=== PATIENT | female | born 1935 | race Caucasian/White ===

== ENCOUNTER 2022-01-12 19:29 | Inpatient (IN) | payer SELFPAY ==
[~2022-01-12] VITALS: Ht 152.4 cm; Wt 58.5 kg
--- NOTE | 2022-01-12 19:40 | NUR ---
TACOS7 FROM HOME FOUND ON FLOOR. ON O2 SATTING 82% ON 3L SATTING 95% MORE ALTERED THAN USUAL. ROUND BONER NEVER SHOWED UP PER EMS UNABLE TO OBTAIN ANY INFO. [id number]. PT AWAKE; NONVERBAL. NOW SATTING 96% ON 5L N/C. CONNECTED PT TO POX AND MONITOR. SAFETY MEASURES IN PLACE.
[2022-01-12] MEDS ORDERED: ACETAMINOPHEN 650 MG/SUPP.RECT RC ONE ×2 (20:00)
--- NOTE | 2022-01-12 20:01 | NUR ---
IV ESTABLISHED: RFA #18G S/L & LFA #20G S/L
--- NOTE | 2022-01-12 20:02 | NUR ---
FC 16FR INSERTED AND URINE COLLECTED AND SENT TO LAB
--- NOTE | 2022-01-12 20:03 | NUR ---
DR GAMA BARR AT PT'S BEDSIDE
--- NOTE | 2022-01-12 20:04 | NUR ---
COVID ANTIGEN SWAB COLLECTED AND SENT TO LAB
[2022-01-12 20:18] LABS: HEMATOCRIT 30 % (33-45); LYMPHOCYTES # (AUTO) 0.5 K/uL (0.8-4.8); LYMPHOCYTES % (AUTO) 4.3 % (20.0-44.0); MEAN CORPUSCULAR HGB CONC 33 g/dl (31.0-36.0); MEAN CORPUSCULAR VOLUME 88 fL (82-100); MONOCYTES # (AUTO) 0.5 K/uL (0.1-1.30); MONOCYTES % (AUTO) 4.4 % (2.0-12.0); NEUTROPHILS % (AUTO) 91.3 % (43.0-81.0); PLATELET COUNT (AUTO) 209 K/uL (150-450); RED BLOOD CELL COUNT(AUTO) 3.44 MIL/uL (4.0-5.2)
--- NOTE | 2022-01-12 20:19 | NUR ---
PT TAKEN TO CT VIA MEGAN
[2022-01-12 20:28] LABS: BILIRUBIN,URINE NEGATIVE (NEGATIVE); COLOR,URINE YELLOW (YELLOW); LEUKOCYTE ESTERASE ,URINE LARGE (NEGATIVE); NITRITE, URINE NEGATIVE (NEGATIVE); PROTEIN,URINE NEGATIVE (NEGATIVE); UGLUCOSE NEGATIVE (NEGATIVE)
[2022-01-12 20:57] LABS: CARBON DIOXIDE 31 mmol/L (21-32); CHLORIDE 92 mmol/L (98-107); CREATININE 3.6 mg/dL (0.6-1.3); GLUCOSE 206 mg/dL (74-106); POTASSIUM 3.7 mmol/L (3.5-5.1); SODIUM SERUM 133 mmol/L (136-145)
[2022-01-12] MEDS ORDERED: PIPERACILLIN /TAZOBACTAM 3.375 G in IV D5W 50 ML IV ONE (21:00)
[2022-01-12] MEDS ORDERED: IV NS 0.9% 1,000 ML BAG IV ONE (21:00)
--- NOTE | 2022-01-12 21:00 | NUR ---
BUN 123
[2022-01-12] MEDS ORDERED: PIPERACILLIN /TAZOBACTAM 3.375 G VIAL IV ONE (21:02)
[2022-01-12 21:10] LABS: ALANINE AMINOTRANSFERASE 12 U/L (12-78); ALBUMIN 2.8 g/dL (3.4-5.0); ALKALINE PHOSPHATASE 59 U/L (46-116); ASPARTATE AMINOTRANSFERASE 23 U/L (15-37); BILIRUBIN,DIRECT 0.4 mg/dL (0.0-0.2); BILIRUBIN,TOTAL 0.8 mg/dL (0.2-1.0); TOTAL PROTEIN, SERUM 7.2 g/dL (6.4-8.2)
[2022-01-12 21:13] LABS: UREA NITROGEN, BLOOD 123 mg/dL (7-18)
[2022-01-12 21:43] LABS: BACTERIA,URINE 4+ /HPF (None Seen); RBC,URINE 51-80 /HPF (0-2); WBC,URINE 51-80 /HPF (0-3)
[2022-01-12] MEDS ORDERED: DEXTROSE 50%-WATER 50 ML DISP.SYRIN IV PRN (22:00)
[2022-01-12] MEDS ORDERED: ACETAMINOPHEN 650 MG/SUPP.RECT RC PRN (22:00)
[2022-01-12] MEDS ORDERED: ONDANSETRON HCL/PF 4 MG/2 ML VIAL IVP PRN (22:00)
[2022-01-12] MEDS ORDERED: Z GUARD REMEDY 4 OZ OINT TP PRN (22:00)
[2022-01-12] MEDS: IV NS 0.9% 1,000 ML IV PRN (22:21)
[2022-01-12 22:33] LABS: SERUM AMMONIA 21 umol/L (11-32)
--- NOTE | 2022-01-12 23:17 | NUR ---
PT AWAKE; NOW A/OX2, ABLE TO VERBALIZE SIMPLE SENTENCES.
[2022-01-12 23:19] LABS: THYROID STIMULATING HORMONE 0.432 uIU/mL (0.358-3.74)
--- NOTE | 2022-01-12 23:19 | NUR ---
LEFT VOICEMESSAGE TO SON [phone] REGARDING CONDITION. NOT ABLE TO OBTAIN PT'S HX
--- NOTE | 2022-01-13 00:34 | NUR ---
SACRAL REDNESS NOTED. TURNED AND REPOSITIONED PATIENT. KEPT CLEAN AND DRY.
--- NOTE | 2022-01-13 01:00 | NUR ---
ASSIGNED TO 104
--- NOTE | 2022-01-13 01:03 | NUR ---
REPORT GIVEN TO SAEID CARBALLO RN FOR OMAR
[2022-01-13] MEDS: BLOOD SUGAR DIAGNOSTIC 1 EACH STRIP IN SCH ×5 (01:31→23:30)
--- NOTE | 2022-01-13 01:32 | NUR ---
POC BS ACCUCHECK 162
--- NOTE | 2022-01-13 01:51 | NUR ---
PT TRANSFERRED TO [facility] 104 VIA ACLS PROTOCOL. ALL BELONGINGS WITH PT. VSS.
[2022-01-13 02:00] VITALS: BP 124/52
--- NOTE | 2022-01-13 02:00 | NUR ---
TELE/TD/RN ADMITTING NOTE RECEIVED REPORT FROM DATER ASSEMBLER HILLARY. PATIENT ARRIVED TO UNIT VIA GURNEY AND 2 STAFF MEMBERS. PATIENT IS BEING ADMITTED WITH DX OF SEPSIS. ATTEMPTED TO OBTAIN PAST MEDICAL HISTORY BUT PATIENT IS CONFUSED AT THIS TIME. PATIENT IS ALERT AND ORIENTED X [address] CONTINUES ON O2 5L VIA NC WITH NO S/SX OF RESPIRATORY DISTRESS NOTED. IV ACCESS TO LEFT FOREARM #20G AND RIGHT FOREARM #18G BOTH INTACT AND PATENT. SKIN CHECK PERFORMED WITH SCABS NOTED TO LEFT KNEE AND LEFT ANKLE. LEFT KNEE ALSO HAS REDNESS. ORDERED WOUND CONSULT. MAS CATHETER IN PLACE DRAINING CLEAR, YELLOW URINE TO GRAVITY. PATIENT STATES SHE IS VACCINATED AGAINST COVID-19 BUT UNABLE TO SAY WHEN OR WHICH VACCINE. PATIENT IS NPO AT THIS TIME AND WILL HAVE SWALLOW EVAL IN AM. PATIENT STATES HER SON'S NAME IS PHILIP. ER HAD LEFT MESSAGE FOR SON WITH NO RESPONSE. WILL ATTEMPT TO CALL THIS MORNING TO OBTAIN PATIENTS MEDICAL INFO. ALL BELONGINGS REVIEWED WITH PATIENT AND BELONGINGS LIST SIGNED AND PLACED IN CHART. PATIENT ORIENTED TO ROOM, CALL LIGHT AND UNIT. CALL LIGHT WITHIN REACH. ASPIRATION, FALL AND SAFETY PRECAUTIONS MAINTAINED. ALL NEEDS ATTENDED TO AT THIS TIME.
[2022-01-13] MEDS: IV NS 0.9% 1,000 ML IV PRN ×2 (02:29→16:33)
[2022-01-13] MEDS ORDERED: PIPERACILLIN /TAZOBACTAM 3.375 G VIAL IV ONE (02:32)
[2022-01-13] MEDS ORDERED: ZOSYN IVPB 3.375 G in IV D5W 50ml IV SCH (03:00)
[2022-01-13 06:00] VITALS: BP 126/58
[2022-01-13] MEDS: INSULIN REGULAR, HUMAN 100 UNIT/ML 3 ML VIAL SQ PRN ×3 (06:00→23:29)
--- NOTE | 2022-01-13 06:40 | NUR ---
TD/RN CLOSING NOTE PATIENT CURRENTLY SLEEPING IN BED. ALERT AND ORIENTED X 3. ABLE TO MAKE NEEDS KNOWN. DENIES PAIN AT THIS TIME. CONTINUES ON 8O2 5L VIA NC WITH NO S/SX OF RESPIRATORY DISTRESS NOTED. IV ACCESS TO RIGHT FA #1G AND LEFT FA #20G BOTH INTACT AND PATENT. CONTINUES ON IVF NS @ 75ML/HR. CONTINUES ON IV ABX. CONTINUES ON NPO STATUS TILL SPEECH SWALLOW EVAL THIS AM. BLOOD SUGAR AT 0600 WAS 141. ADMINISTERED 2UNITS ISS PER MD ORDER. HAVE NOT RECEIVED CALL BACK FROM SON TO UPDATE MEDICAL HX. CALL LIGHT WITHIN REACH. ASPIRATION, FALL AND SAFETY PRECAUTIONS MAINTAINED. WILL ENDORSE PLAN OF CARE TO ONCOMING SHIFT RN.
[2022-01-13 07:06] LABS: BASOPHILS % (AUTO) 0.1 % (0.0-2.0); HEMATOCRIT 28 % (33-45); HEMOGLOBIN 9.1 g/dL (11.5-14.8); LYMPHOCYTES # (AUTO) 0.9 K/uL (0.8-4.8); LYMPHOCYTES % (AUTO) 6.6 % (20.0-44.0); MEAN CORPUSCULAR HGB CONC 33 g/dl (31.0-36.0); MEAN CORPUSCULAR VOLUME 89 fL (82-100); MONOCYTES # (AUTO) 0.6 K/uL (0.1-1.30); MONOCYTES % (AUTO) 4.3 % (2.0-12.0); NEUTROPHILS # (AUTO) 11.5 K/uL (1.8-8.9); PLATELET COUNT (AUTO) 185 K/uL (150-450); RED BLOOD CELL COUNT(AUTO) 3.14 MIL/uL (4.0-5.2); WHITE BLOOD COUNT (AUTO) 12.9 K/uL (4.3-11.0)
[2022-01-13 07:21] LABS: CALCIUM, SERUM 8.9 mg/dL (8.5-10.1); CARBON DIOXIDE 31 mmol/L (21-32); CHLORIDE 97 mmol/L (98-107); CREATININE 3.3 mg/dL (0.6-1.3); GLUCOSE 153 mg/dL (74-106); MAGNESIUM 2.8 mg/dL (1.8-2.4); PHOSPHORUS 5.2 mg/dL (2.5-4.9); POTASSIUM 3.5 mmol/L (3.5-5.1); SODIUM SERUM 137 mmol/L (136-145)
[2022-01-13 07:23] LABS: CHOLESTEROL 132 mg/dL (<200); HDL CHOLESTEROL 39 mg/dL (40-60); LDL 81 mg/dL (0-99); TRIGLYCERIDES 84 mg/dL (30-150)
[2022-01-13 07:24] LABS: UREA NITROGEN, BLOOD 116 mg/dL (7-18)
--- NOTE | 2022-01-13 07:34 | NUR ---
TELESALES ADVISOR OPENING NOTE PATIENT RECEIVED SLEEPING IN BED. EASILY AROUSABLE. ALERT AND ORIENTED X 2-3. ABLE TO MAKE NEEDS KNOWN. DENIES PAIN AT THIS TIME. CONTINUES ON O2 AT 5 LITERS VIA NC WITH NO S/SX OF RESPIRATORY DISTRESS. IV ACCESS TO RIGHT FA #18G AND LEFT FA #20G BOTH INTACT AND PATENT. CONTINUES ON IVF NS @ 75ML/HR. CONTINUES ON NPO STATUS TILL SPEECH SWALLOW EVAL THIS AM. CALL LIGHT WITHIN REACH. ASPIRATION, FALL AND SAFETY PRECAUTIONS IN PLACE. WILL CONTINUE PLAN OF CARE.
[2022-01-13 09:00] VITALS: BP 137/63
[2022-01-13] MEDS: PIPERACILLIN /TAZOBACTAM 2.25 G in IV D5W 50 ML IV SCH ×2 (10:05→17:13)
[2022-01-13 10:16] LABS: FERRITIN 156 ng/mL (8-388)
[2022-01-13 10:32] LABS: IRON, SERUM 14 ug/dl (50-175); TOTAL IRON BINDING CAPACITY 193 ug/dl (250-450)
[2022-01-13 13:00] VITALS: BP 132/59
[2022-01-13] MEDS ORDERED: MAGNESIUM HYDROXIDE 30 ML UDC PO PRN ×2 (14:00→20:00)
--- NOTE | 2022-01-13 14:52 | NUR ---
PT CONFUSED. PULLED RT FA #18G IV LINE OUT. REORIENTED PT AND PROVIDED COMFORT.
[2022-01-13] MEDS ORDERED: POLYETHYLENE GLYCOL 3350 17 GM POWD.PACK PO PRN (16:30)
[2022-01-13] MEDS: DOCUSATE SODIUM 100 MG CAPSULE PO SCH (16:45)
[2022-01-13 17:00] VITALS: BP 122/60
--- NOTE | 2022-01-13 19:02 | NUR ---
MUSIC THERAPY TEACHER CLOSING NOTE PATIENT AWAKE IN BED. ALERT AND ORIENTED X 2. ABLE TO MAKE NEEDS KNOWN. DENIES PAIN AT THIS TIME. CONTINUES ON O2 AT 5 LITERS VIA NC WITH NO S/SX OF RESPIRATORY DISTRESS. IV ACCESS TO LEFT FA #20G INTACT AND PATENT. IV ACCESS ON RT FA REMOVED BY PT. CONTINUES ON IVF NS @ 75ML/HR. CONTINUES ON NPO STATUS TILL SPEECH SWALLOW EVAL. CALL LIGHT WITHIN REACH. ASPIRATION, FALL AND SAFETY PRECAUTIONS IN PLACE. WILL ENDORSE TO NEXT NURSE ON DUTY FOR CONTINUITY OF CARE.
[2022-01-13 20:00] VITALS: BP 146/58
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
--- NOTE | 2022-01-13 23:33 | NUR ---
Yovani rn notes Blood sugar at 12mn is 115mg/dl no coverage given per sliding scale pts on iv fluids at this time will chechkblood sugar again in am
[2022-01-14] VITALS: BP 123/53
[2022-01-14] MEDS: PIPERACILLIN /TAZOBACTAM 2.25 G in IV D5W 50 ML IV SCH ×3 (01:03→18:00)
[2022-01-14 04:00] VITALS: BP 132/53
[2022-01-14] MEDS: INSULIN REGULAR, HUMAN 100 UNIT/ML 3 ML VIAL SQ PRN ×2 (05:22→13:21)
[2022-01-14] MEDS: BLOOD SUGAR DIAGNOSTIC 1 EACH STRIP IN SCH ×4 (05:23→23:54)
--- NOTE | 2022-01-14 05:30 | NUR ---
Yovani rn notes Blood sugar at 6am is 112 mg/dl no coverage given per sliding scale pts on iv fluids at this time will chechkblood sugar again in am
--- NOTE | 2022-01-14 06:43 | NUR ---
td rn notes Pts remains in bed awake on 4 liters of o2 via nc remains on tele monitor sb no sob no distress noted , v/s stable afebrile . remains on iv fluids ns at 75cc /hr infusing well left fa g#20 intact and patent , f/c draining will yellowish urine output.will endorse to rn day shift for continuity of care.
--- NOTE | 2022-01-14 07:30 | NUR ---
RN OPENING NOTE RECEIVED PATIENT SLEEPING IN BED. EASILY AROUSABLE TO TOUCH AND SOUND ALERT AND ORIENTED X 2-3. ON O2 AT 4 LITERS VIA NC WITH NO S/SX OF RESPIRATORY DISTRESS. IV ACCESS LEFT FA #20G INTACT AND PATENT WITH CONTINUES IVF NS @ 75ML/HR. CALL LIGHT WITHIN REACH. ASPIRATION PRECUATION IN PLACE. SAFETY PRECAUTIONS IN PLACE. WILL CONTINUE TO MONITOR PATIENT
[2022-01-14 07:33] LABS: BASOPHILS % (AUTO) 0.1 % (0.0-2.0); EOSINOPHILS % (AUTO) 0.4 % (0.0-6.0); HEMATOCRIT 27 % (33-45); HEMOGLOBIN 8.9 g/dL (11.5-14.8); LYMPHOCYTES # (AUTO) 0.8 K/uL (0.8-4.8); LYMPHOCYTES % (AUTO) 8.8 % (20.0-44.0); MEAN CORPUSCULAR HGB CONC 33 g/dl (31.0-36.0); MEAN CORPUSCULAR VOLUME 89 fL (82-100); MONOCYTES # (AUTO) 0.5 K/uL (0.1-1.30); MONOCYTES % (AUTO) 4.8 % (2.0-12.0); NEUTROPHILS # (AUTO) 8.3 K/uL (1.8-8.9); NEUTROPHILS % (AUTO) 85.9 % (43.0-81.0); PLATELET COUNT (AUTO) 169 K/uL (150-450); RED BLOOD CELL COUNT(AUTO) 3.04 MIL/uL (4.0-5.2); WHITE BLOOD COUNT (AUTO) 9.7 K/uL (4.3-11.0)
[2022-01-14 08:00] VITALS: BP_SYST 134; BP_SYST 152; BP_SYST 157; BP_DIAS 43; BP_DIAS 46; BP_DIAS 51
--- NOTE | 2022-01-14 08:00 | NUR ---
RN NOTES ORTHOSTATIC BP FOLLOWS: SUPINE BP -152/43 HR 60, SITTING 157/51 HR 62, STANDING UNABLE
[2022-01-14 08:05] LABS: ALANINE AMINOTRANSFERASE 7 U/L (12-78); ALKALINE PHOSPHATASE 51 U/L (46-116); ASPARTATE AMINOTRANSFERASE 28 U/L (15-37); BILIRUBIN,TOTAL 0.6 mg/dL (0.2-1.0); CALCIUM, SERUM 8.8 mg/dL (8.5-10.1); CARBON DIOXIDE 31 mmol/L (21-32); CHLORIDE 104 mmol/L (98-107); CREATININE 2.8 mg/dL (0.6-1.3); GLUCOSE 116 mg/dL (74-106); MAGNESIUM 3.1 mg/dL (1.8-2.4); PHOSPHORUS 4.8 mg/dL (2.5-4.9); POTASSIUM 3.1 mmol/L (3.5-5.1); SODIUM SERUM 143 mmol/L (136-145); TOTAL PROTEIN, SERUM 6.2 g/dL (6.4-8.2)
[2022-01-14 08:33] LABS: UREA NITROGEN, BLOOD 103 mg/dL (7-18)
[2022-01-14] MEDS: DOCUSATE SODIUM 100 MG CAPSULE PO SCH (09:48)
[2022-01-14] MEDS ORDERED: POTASSIUM CHLORIDE 20 MEQ TAB.PRT.SR PO ONE (11:00)
[2022-01-14 12:00] VITALS: BP 146/62
--- NOTE | 2022-01-14 13:26 | NUR ---
RN NOTES YANN SON - [phone] SLICK SON [phone]
[2022-01-14] MEDS: SOD FERRIC GLUC 125 MG in IV NS 0.9% 100 ML IV SCH (14:26)
--- NOTE | 2022-01-14 15:19 | NUR ---
RECEIVED A CALL FROM SON CARLITOS AT [phone] AND STATED THAT HIS MOTHER DOES NOT HAVE ANY ALLERGIES TO MEDICATION
[2022-01-14 16:00] VITALS: BP 156/53
--- NOTE | 2022-01-14 19:30 | NUR ---
RN OPENING NOTE RECEIVED PATIENT AWAKE IN BED. A/OX 2. ON O2 AT 4 LITERS VIA NC WITH NO S/SX OF DISTRESS. IV ACCESS LFA #20G INTACT AND PATENT WITH NS @ 75ML/HR. CALL LIGHT WITHIN REACH. ASPIRATION PRECUATION IN PLACE. SAFETY PRECAUTIONS IN PLACE. WILL CONTINUE TO MONITOR PATIENT Addendum: 01/14/22 at 2031 by HILLARY OSEI RN HR 69
[2022-01-14 20:00] VITALS: BP 154/47
[2022-01-15] VITALS: BP 108/63
[2022-01-15] MEDS: PIPERACILLIN /TAZOBACTAM 2.25 G in IV D5W 50 ML IV SCH ×3 (02:03→17:53)
[2022-01-15 04:00] VITALS: BP 109/58
[2022-01-15] MEDS: BLOOD SUGAR DIAGNOSTIC 1 EACH STRIP IN SCH ×3 (06:10→17:53)
[2022-01-15 06:42] LABS: CARBON DIOXIDE 31 mmol/L (21-32); CHLORIDE 105 mmol/L (98-107); CREATININE 2.1 mg/dL (0.6-1.3); GLUCOSE 136 mg/dL (74-106); MAGNESIUM 2.7 mg/dL (1.8-2.4); PHOSPHORUS 2.7 mg/dL (2.5-4.9); POTASSIUM 3.2 mmol/L (3.5-5.1); SODIUM SERUM 141 mmol/L (136-145); UREA NITROGEN, BLOOD 72 mg/dL (7-18)
[2022-01-15 06:43] LABS: BASOPHILS % (AUTO) 0.2 % (0.0-2.0); EOSINOPHILS % (AUTO) 0.9 % (0.0-6.0); HEMATOCRIT 29 % (33-45); HEMOGLOBIN 9.4 g/dL (11.5-14.8); LYMPHOCYTES # (AUTO) 0.8 K/uL (0.8-4.8); LYMPHOCYTES % (AUTO) 11.7 % (20.0-44.0); MEAN CORPUSCULAR HGB CONC 33 g/dl (31.0-36.0); MEAN CORPUSCULAR VOLUME 89 fL (82-100); MONOCYTES # (AUTO) 0.6 K/uL (0.1-1.30); MONOCYTES % (AUTO) 7.8 % (2.0-12.0); NEUTROPHILS # (AUTO) 5.8 K/uL (1.8-8.9); NEUTROPHILS % (AUTO) 79.4 % (43.0-81.0); PLATELET COUNT (AUTO) 186 K/uL (150-450); RED BLOOD CELL COUNT(AUTO) 3.23 MIL/uL (4.0-5.2); WHITE BLOOD COUNT (AUTO) 7.3 K/uL (4.3-11.0)
--- NOTE | 2022-01-15 06:46 | NUR ---
RN CLOSING NOTE PATIENT IS IN STABLE CONDITION DURING SHIFT, NO DISTRESS OR DISCOMFORT NOTED. ALL NEEDS ATTENDED, KEPT PATIENT CLEAN AND DRY, SIDE RAILS X2, CALL LIGHT WITHIN REACH, WILL ENDORSE TO DAYSHIFT NURSE.
[2022-01-15 08:00] VITALS: BP 167/56
[2022-01-15] MEDS: DOCUSATE SODIUM 100 MG CAPSULE PO SCH (10:04)
[2022-01-15] MEDS: POTASSIUM CHLORIDE 10 MEQ TABLET.SA PO SCH ×3 (10:04→12:13)
[2022-01-15 12:00] VITALS: BP_SYST 167; BP_SYST 172; BP_SYST 178; BP_DIAS 63; BP_DIAS 70; BP_DIAS 73
[2022-01-15] MEDS: INSULIN REGULAR, HUMAN 100 UNIT/ML 3 ML VIAL SQ PRN (12:12)
--- NOTE | 2022-01-15 13:54 | NUR ---
RN NOTE REPORT GIVEN TO JUDAH NARANJO FOR OMAR.
[2022-01-15] MEDS ORDERED: hydrALAZINE HCL IV 20 MG VIAL IV PRN (14:00)
[2022-01-15] MEDS: SOD FERRIC GLUC 125 MG in IV NS 0.9% 100 ML IV SCH (14:12)
[2022-01-15] MEDS: IV NS 0.9% 1,000 ML IV PRN (14:15)
[2022-01-15 16:00] VITALS: BP_SYST 111; BP_SYST 160; BP_DIAS 23; BP_DIAS 58
--- NOTE | 2022-01-15 18:52 | NUR ---
RN CLOSING NOTE PATIENT AWAKE A/O X2, NO DISTRESS OR DISCOMFORT NOTED. 2L NC, TOLERATING WELL. LFA IV LINE G20 PATENT AND INTACT, INFUSING 75ML NS PER HOUR. ALL NEEDS ATTENDED, KEPT PATIENT CLEAN AND DRY, SIDE RAILS X2, CALL LIGHT WITHIN REACH, WILL ENDORSE TO NEXT SHIFT NURSE FOR CONTINUITY OF CARE.
--- NOTE | 2022-01-15 19:30 | NUR ---
RN OPENING NOTE RECEIVED PATIENT AWAKE IN BED, A/O X3, ON RA O2 SAT 100%, NO S/S OF RESP DISTRESS, DENIES PAIN AT THIS TIME, TELE MONITOR READING SR HR 60,LFA #20 RUNNING NS@75ML/HR,NO S/S OF INFILTRATION NOTED, INTACT AND PATENT, MAS CATHETER DRAINING CLEAR YELLOW URINE, SIDE RAILS X2, CALL LIGHT WITHIN REACH, WILL CONTINUE TO MONITOR. VSS
[2022-01-15 20:00] VITALS: BP 129/69
[2022-01-15] MEDS: AMPICILLIN SODIUM INJ 1 GM in IV NS 50 ML IV SCH (21:13)
[2022-01-16] VITALS (7 sets, daily range): BP systolic 95–181; BP diastolic 56–70
[2022-01-16] MEDS: BLOOD SUGAR DIAGNOSTIC 1 EACH STRIP IN SCH ×3 (00:18→11:52)
[2022-01-16 06:15] LABS: BASOPHILS % (AUTO) 0.4 % (0.0-2.0); EOSINOPHILS % (AUTO) 2.3 % (0.0-6.0); HEMATOCRIT 28 % (33-45); HEMOGLOBIN 9.2 g/dL (11.5-14.8); LYMPHOCYTES % (AUTO) 21.1 % (20.0-44.0); MEAN CORPUSCULAR HGB CONC 33 g/dl (31.0-36.0); MEAN CORPUSCULAR VOLUME 89 fL (82-100); MONOCYTES # (AUTO) 0.4 K/uL (0.1-1.30); MONOCYTES % (AUTO) 9.4 % (2.0-12.0); NEUTROPHILS # (AUTO) 3.2 K/uL (1.8-8.9); NEUTROPHILS % (AUTO) 66.8 % (43.0-81.0); PLATELET COUNT (AUTO) 212 K/uL (150-450); RED BLOOD CELL COUNT(AUTO) 3.18 MIL/uL (4.0-5.2); WHITE BLOOD COUNT (AUTO) 4.7 K/uL (4.3-11.0)
[2022-01-16 06:23] LABS: CALCIUM, SERUM 8.6 mg/dL (8.5-10.1); CARBON DIOXIDE 29 mmol/L (21-32); CHLORIDE 109 mmol/L (98-107); CREATININE 1.7 mg/dL (0.6-1.3); GLUCOSE 114 mg/dL (74-106); MAGNESIUM 2.6 mg/dL (1.8-2.4); PHOSPHORUS 2.8 mg/dL (2.5-4.9); POTASSIUM 3.7 mmol/L (3.5-5.1); SODIUM SERUM 144 mmol/L (136-145); UREA NITROGEN, BLOOD 53 mg/dL (7-18)
--- NOTE | 2022-01-16 06:33 | NUR ---
DOUBLE CUT SAWYER CLOSING NOTE PATIENT IS IN STABLE CONDITION DURING SHIFT, NO DISTRESS OR DISCOMFORT NOTED. SINUS JUAN MID 40'S, PATIENT DENIES ANY PAIN, LFA #20G RUNNING NS@75ML/HR, ALL NEEDS ATTENDED, KEPT PATIENT CLEAN AND DRY, SIDE RAILS X2, CALL LIGHT WITHIN REACH, WILL ENDORSE TO DAYSHIFT NURSE.
--- NOTE | 2022-01-16 07:45 | NUR ---
RN OPENING NOTE RECEIVED PATIENT ASLEEP IN BED, EASILY AROUSABLE. A/O X3, ON RA O2 SAT 100%, NO S/S OF RESP DISTRESS, DENIES PAIN AT THIS TIME, TELE MONITOR READING SR HR 60'S, LFA #20 INFUSING NS@75ML/HR, NO S/S OF INFILTRATION NOTED, INTACT AND PATENT, MAS CATHETER DRAINING CLEAR YELLOW URINE, SIDE RAILS X2, CALL LIGHT WITHIN REACH, WILL CONTINUE PLAN OF CARE.
[2022-01-16] MEDS: IV NS 0.9% 1,000 ML IV PRN (09:24)
[2022-01-16] MEDS: DOCUSATE SODIUM 100 MG CAPSULE PO SCH (09:58)
[2022-01-16] MEDS: AMPICILLIN SODIUM INJ 1 GM in IV NS 50 ML IV SCH (09:58)
[2022-01-16] MEDS: INSULIN REGULAR, HUMAN 100 UNIT/ML 3 ML VIAL SQ PRN (11:53)
--- NOTE | 2022-01-16 12:24 | NUR ---
ORTHOSTATIC VS BP SUPINE 153/62 HR 72 SITTING 146/67 HR 75 LYING 138/56 HR 84 PT CAN HARDLY STAND UP. DR. EM NOTIFIED.
[2022-01-16] MEDS ORDERED: AMPI500C11 PO (14:30)
[2022-01-16] MEDS: SOD FERRIC GLUC 125 MG in IV NS 0.9% 100 ML IV SCH (14:35)
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
--- NOTE | 2022-01-16 15:58 | NUR ---
SPOKE WITH CM AND REFUSED SNF. BOTH WANTS TO GO HOME. REVIEWED DISCHARGE INSTRUCTIONS WITH PT AND SON. BOTH VERBALIZED UNDERSTANDING. PT DISCHARGED VIA WHEELCHAIR WITH PRESCRIPTIONS AND INSTRUCTIONS. IV, FC AND TELEMETRY DISCONTINUED. PT LEFT HOSPITAL WITH SON TO HOME SELF CARE.
--- NOTE | 2022-01-16 18:20 | NUR ---
SLICK PATIENT SON GAVE NEW PHARMACY [facility] ,NEW PRESCRIPTION ANTIBIOTIC CALL IN TO [facility] AND WILL BE DELIVERED TO PT. ADDRESS,INSTRUCTED SON SLICK TO FF. UP.
--- NOTE | 2022-01-18 11:37 | NUR ---
SS Note: VENUS [facility] [facility] [phone]. Yanira asked about patient's discharge. VENUS notified her that per CM notes, pt. refused SNF placement and pt. returned home with 24 hour caregiver and 2 sons who care for pt. VENUS provided patient's sons contact information. Per Yanira she will follow up with them. VENUS will remain available as needed.
--- NOTE | 2022-01-18 15:35 | NUR ---
APS Edging Machine Feeder: VENUS received call from APS VENUS, MARK ARAUJO [phone] requesting patient's whereabouts. VENUS informed her that the pt. was DC home after she refused SNF placement. APS worker stated she will follow up with the pt. at home and requested sons contact information. VENUS provided David hernández and Slade contact info.SW will be available as needed.
== END 2022-01-16 18:57 | disposition home or self-care (01) | DRG 871 ==
LOC: ER 19:35 → EDBD 19:35 → TELE1 01-13 01:27 → TELE-TD 01-13 06:22 → TELE1 01-15 14:33
PROVIDERS: ADMIT Nurse Practitioner Acute Care; ATTEND Internal Medicine
DX: A41.9 Sepsis, unspecified organism (principal); G93.41 Metabolic encephalopathy; N17.0 Acute kidney failure with tubular necrosis; E87.1 Hypo-osmolality and hyponatremia; N39.0 Urinary tract infection, site not specified; E44.0 Moderate protein-calorie malnutrition; E11.22 Type 2 diabetes mellitus with diabetic chronic kidney disease; Z20.822 Contact with and (suspected) exposure to COVID-19; E66.01 Morbid (severe) obesity due to excess calories; E86.0 Dehydration; E86.1 Hypovolemia; E87.8 Other disorders of electrolyte and fluid balance, not elsewhere classified; Z99.81 Dependence on supplemental oxygen; N28.1 Cyst of kidney, acquired; E87.6 Hypokalemia; E88.09 Other disorders of plasma-protein metabolism, not elsewhere classified; I70.0 Atherosclerosis of aorta; E11.65 Type 2 diabetes mellitus with hyperglycemia; F43.9 Reaction to severe stress, unspecified; K86.89 Other specified diseases of pancreas; K59.00 Constipation, unspecified; B96.1 Klebsiella pneumoniae [K. pneumoniae] as the cause of diseases classified elsewhere; D63.8 Anemia in other chronic diseases classified elsewhere; K57.30 Diverticulosis of large intestine without perforation or abscess without bleeding; K80.20 Calculus of gallbladder without cholecystitis without obstruction; M43.13 Spondylolisthesis, cervicothoracic region; N18.9 Chronic kidney disease, unspecified; R09.89 Other specified symptoms and signs involving the circulatory and respiratory systems
CPT/HCPCS: 36415; 70450-TC; 71045-TC; 72125-TC; 74018; 76770-TC; 80048-TC; 80053-TC; 80061-TC; 80076-TC; 81001; 82140-TC; 82550-TC; 82553; 82728-TC; 82962-TC; 83540-TC; 83605-TC; 83735-TC; 83880; 84100-TC; 84443-TC; 84484-TC; 85025-TC; 85730-TC; 87040-TC; 87081-TC; 87086-TC; 87186-TC; 92507-TC; 92521; 92526; 92611-TC; 93307-TC; 94799-TC; 97110-TC; 97116-TC; 97530-TC; C9803; G0378; J0290; J0360; J1815; J2543; J2916; J7030; J7060

== ENCOUNTER 2022-08-18 14:24 | Inpatient (IN) | payer MEDICARE, OTHER ==
[~2022-08-18] VITALS: Ht 157.5 cm; Wt 63.0 kg
[~2022-08-18 14:24] MED LIST: AMPI500C11 PO
[2022-08-18] MEDS ORDERED: POTA-10 PO (14:46)
[2022-08-18] MEDS ORDERED: AMIN887L PO (14:46)
[2022-08-18] MEDS ORDERED: SPIR25TA6 PO (14:46)
[2022-08-18] MEDS ORDERED: FLUO20CA36 PO (14:46)
[2022-08-18] MEDS ORDERED: BISA10SU11 RC (14:46)
[2022-08-18] MEDS ORDERED: FURO-144 PO (14:46)
[2022-08-18] MEDS ORDERED: MAGN400O6 PO (14:46)
[2022-08-18] MEDS ORDERED: LEVO137T24 PO (14:46)
[2022-08-18] MEDS ORDERED: ACET325T53 PO (14:46)
[2022-08-18] MEDS ORDERED: ATOR40TA PO (14:46)
[2022-08-18] MEDS ORDERED: MULT-439 PO (14:46)
[2022-08-18] MEDS ORDERED: AMLO5TAB4 PO (14:46)
[2022-08-18] MEDS ORDERED: CHOL200013 PO (14:46)
[2022-08-18] MEDS ORDERED: NA P133E RC (14:46)
[2022-08-18] MEDS ORDERED: MELA3TAB41 PO (14:46)
[2022-08-18 15:43] LABS: EOSINOPHILS % (AUTO) 0.4 % (0.0-6.0); HEMATOCRIT 31 % (33-45); HEMOGLOBIN 9.6 g/dL (11.5-14.8); LYMPHOCYTES # (AUTO) 1.1 K/uL (0.8-4.8); LYMPHOCYTES % (AUTO) 17.6 % (20.0-44.0); MEAN CORPUSCULAR HGB CONC 31 g/dl (31.0-36.0); MEAN CORPUSCULAR VOLUME 85 fL (82-100); MONOCYTES # (AUTO) 0.4 K/uL (0.1-1.30); MONOCYTES % (AUTO) 5.8 % (2.0-12.0); NEUTROPHILS # (AUTO) 4.8 K/uL (1.8-8.9); NEUTROPHILS % (AUTO) 76.2 % (43.0-81.0); PLATELET COUNT (AUTO) 148 K/uL (150-450); RED BLOOD CELL COUNT(AUTO) 3.67 MIL/uL (4.0-5.2); WHITE BLOOD COUNT (AUTO) 6.3 K/uL (4.3-11.0)
[2022-08-18 15:53] LABS: CALCIUM, SERUM 7.9 mg/dL (8.5-10.1); CARBON DIOXIDE 21 mmol/L (21-32); CHLORIDE 109 mmol/L (98-107); CREATININE 2.2 mg/dL (0.6-1.3); GLUCOSE 122 mg/dL (74-106); POTASSIUM 4.9 mmol/L (3.5-5.1); SODIUM SERUM 135 mmol/L (136-145); UREA NITROGEN, BLOOD 36 mg/dL (7-18)
[2022-08-18 16:07] LABS: ALANINE AMINOTRANSFERASE 22 U/L (12-78); ALKALINE PHOSPHATASE 257 U/L (46-116); ASPARTATE AMINOTRANSFERASE 24 U/L (15-37); BILIRUBIN,DIRECT 0.2 mg/dL (0.0-0.2); BILIRUBIN,TOTAL 0.3 mg/dL (0.2-1.0); TOTAL PROTEIN, SERUM 4.6 g/dL (6.4-8.2)
[2022-08-18 16:13] LABS: ALBUMIN 1.1 g/dL (3.4-5.0)
[2022-08-18] MEDS ORDERED: FUROSEMIDE 20 MG/2 ML VIAL IV ONE (16:30)
[2022-08-18] MEDS ORDERED: Z GUARD REMEDY 4 OZ OINT TP PRN (16:30)
[2022-08-18] MEDS ORDERED: ONDANSETRON HCL/PF 4 MG/2 ML VIAL IVP PRN (16:30)
[2022-08-18] MEDS ORDERED: ACETAMINOPHEN 325 MG TABLET PO PRN (16:30)
[2022-08-18] MEDS ORDERED: ASPIRIN 325 MG TABLET PO ONE (16:30)
[2022-08-18] MEDS ORDERED: FUROSEMIDE 20 MG/2 ML VIAL ONE (17:15)
[2022-08-18] MEDS ORDERED: CARVEDILOL 3.125 MG TABLET ONE (17:16)
[2022-08-18] MEDS ORDERED: ASPIRIN EC 325 MG TABLET.DR PO ONE (17:16)
[2022-08-18] MEDS ORDERED: ENOXAPARIN SODIUM 30 MG/0.3 ML DISP.SYRIN ONE (17:16)
[2022-08-18] MEDS: CARVEDILOL 3.125 MG TABLET PO SCH (17:21)
[2022-08-18] MEDS: ENOXAPARIN SODIUM 30 MG/0.3 ML DISP.SYRIN SQ SCH (17:24)
[2022-08-18 20:00] VITALS: BP 114/60
[2022-08-18] MEDS: ATORVASTATIN 40 MG TABLET PO SCH (21:19)
[2022-08-19] VITALS: BP 121/78
[2022-08-19 03:18] LABS: BILIRUBIN,URINE NEGATIVE (NEGATIVE); COLOR,URINE YELLOW (YELLOW); LEUKOCYTE ESTERASE ,URINE 2+ (NEGATIVE); NITRITE, URINE POSITIVE (NEGATIVE); PROTEIN,URINE NEGATIVE (NEGATIVE); UGLUCOSE NEGATIVE (NEGATIVE); UROBILINOGEN,URINE 0.2 EU/dL (0.2)
[2022-08-19 03:25] LABS: BACTERIA,URINE Many /HPF (None Seen); RBC,URINE 0-2 /HPF (0-2); SQUAMOUS EPITHELIAL CELL,UR Few /HPF (None Seen)
[2022-08-19 04:00] VITALS: BP 132/60
[2022-08-19 05:41] LABS: BASOPHILS % (AUTO) 0.4 % (0.0-2.0); EOSINOPHILS % (AUTO) 3.8 % (0.0-6.0); HEMATOCRIT 30 % (33-45); HEMOGLOBIN 9.6 g/dL (11.5-14.8); LYMPHOCYTES # (AUTO) 1.8 K/uL (0.8-4.8); LYMPHOCYTES % (AUTO) 34.8 % (20.0-44.0); MEAN CORPUSCULAR HGB CONC 32 g/dl (31.0-36.0); MEAN CORPUSCULAR VOLUME 83 fL (82-100); MONOCYTES # (AUTO) 0.4 K/uL (0.1-1.30); MONOCYTES % (AUTO) 7.7 % (2.0-12.0); NEUTROPHILS # (AUTO) 2.7 K/uL (1.8-8.9); NEUTROPHILS % (AUTO) 53.3 % (43.0-81.0); PLATELET COUNT (AUTO) 143 K/uL (150-450); RED BLOOD CELL COUNT(AUTO) 3.63 MIL/uL (4.0-5.2)
[2022-08-19 05:56] LABS: ALANINE AMINOTRANSFERASE 19 U/L (12-78); ALKALINE PHOSPHATASE 230 U/L (46-116); ASPARTATE AMINOTRANSFERASE 26 U/L (15-37); BILIRUBIN,TOTAL 0.4 mg/dL (0.2-1.0); CALCIUM, SERUM 7.5 mg/dL (8.5-10.1); CARBON DIOXIDE 20 mmol/L (21-32); CHLORIDE 111 mmol/L (98-107); GLUCOSE 71 mg/dL (74-106); MAGNESIUM 1.8 mg/dL (1.8-2.4); POTASSIUM 4.6 mmol/L (3.5-5.1); SODIUM SERUM 137 mmol/L (136-145); TOTAL PROTEIN, SERUM 4.4 g/dL (6.4-8.2); UREA NITROGEN, BLOOD 38 mg/dL (7-18)
[2022-08-19 06:02] LABS: ALBUMIN 1.1 g/dL (3.4-5.0)
[2022-08-19 06:13] LABS: THYROID STIMULATING HORMONE 4.527 uIU/mL (0.358-3.74)
[2022-08-19 08:00] VITALS: BP 119/61
[2022-08-19] MEDS: FLUOXETINE HCL 20 MG CAPSULE PO SCH (08:36)
[2022-08-19] MEDS: ASPIRIN 81 MG TAB.CHEW PO SCH (08:37)
[2022-08-19] MEDS: CARVEDILOL 3.125 MG TABLET PO SCH ×2 (08:37→16:31)
[2022-08-19] MEDS: LEVOTHYROXINE SODIUM 125 MCG TABLET PO SCH (08:37)
[2022-08-19] MEDS ORDERED: FUROSEMIDE 40 MG/4 ML VIAL IV SCH (09:00)
[2022-08-19] MEDS ORDERED: AMLODIPINE BESYLATE 5 MG TABLET PO SCH (09:00)
[2022-08-19] MEDS ORDERED: BUMETANIDE INJ 8 MG in IV NS 0.9% 48 ML IV ONE (10:00)
[2022-08-19] MEDS: ALBUMIN 25% 25 GM in PREMIX 1 EA IV SCH ×2 (10:52→22:08)
[2022-08-19 12:00] VITALS: BP 110/48
[2022-08-19 16:00] VITALS: BP 107/49
[2022-08-19] MEDS: ENOXAPARIN SODIUM 30 MG/0.3 ML DISP.SYRIN SQ SCH (17:18)
[2022-08-19 19:57] LABS: BILIRUBIN,URINE NEGATIVE (NEGATIVE); COLOR,URINE YELLOW (YELLOW); LEUKOCYTE ESTERASE ,URINE 3+ (NEGATIVE); NITRITE, URINE POSITIVE (NEGATIVE); PH,URINE 5.5 (5.0-8.0); PROTEIN,URINE NEGATIVE (NEGATIVE); UGLUCOSE NEGATIVE (NEGATIVE); UROBILINOGEN,URINE 0.2 EU/dL (0.2)
[2022-08-19 20:00] VITALS: BP 99/43
[2022-08-19 20:08] LABS: CREATININE, URINE 59.5 MG/DL (30.0-125.0)
[2022-08-19 20:17] LABS: BACTERIA,URINE 3+ /HPF (None Seen); RBC,URINE 21-50 /HPF (0-2); WBC,URINE 51-80 /HPF (0-3)
[2022-08-19 20:18] LABS: MUCUS,URINE Few /LPF (None Seen); SQUAMOUS EPITHELIAL CELL,UR 0-2 /HPF (None Seen)
[2022-08-19] MEDS: ATORVASTATIN 40 MG TABLET PO SCH (21:50)
[2022-08-20] VITALS: BP 112/47
[2022-08-20 04:00] VITALS: BP 128/53
[2022-08-20 07:45] LABS: BASOPHILS % (AUTO) 0.2 % (0.0-2.0); EOSINOPHILS % (AUTO) 6.5 % (0.0-6.0); HEMATOCRIT 27 % (33-45); HEMOGLOBIN 8.5 g/dL (11.5-14.8); LYMPHOCYTES # (AUTO) 1.2 K/uL (0.8-4.8); LYMPHOCYTES % (AUTO) 24.9 % (20.0-44.0); MEAN CORPUSCULAR HGB CONC 32 g/dl (31.0-36.0); MEAN CORPUSCULAR VOLUME 84 fL (82-100); MONOCYTES # (AUTO) 0.3 K/uL (0.1-1.30); MONOCYTES % (AUTO) 7.3 % (2.0-12.0); NEUTROPHILS # (AUTO) 2.9 K/uL (1.8-8.9); NEUTROPHILS % (AUTO) 61.1 % (43.0-81.0); PLATELET COUNT (AUTO) 128 K/uL (150-450); RED BLOOD CELL COUNT(AUTO) 3.17 MIL/uL (4.0-5.2); WHITE BLOOD COUNT (AUTO) 4.7 K/uL (4.3-11.0)
[2022-08-20 08:00] VITALS: BP 129/66
[2022-08-20 08:15] LABS: ALANINE AMINOTRANSFERASE 20 U/L (12-78); ALBUMIN 2.1 g/dL (3.4-5.0); ALKALINE PHOSPHATASE 216 U/L (46-116); ASPARTATE AMINOTRANSFERASE 23 U/L (15-37); BILIRUBIN,TOTAL 0.6 mg/dL (0.2-1.0); CALCIUM, SERUM 7.8 mg/dL (8.5-10.1); CARBON DIOXIDE 23 mmol/L (21-32); CHLORIDE 109 mmol/L (98-107); CREATININE 1.9 mg/dL (0.6-1.3); GLUCOSE 88 mg/dL (74-106); MAGNESIUM 1.7 mg/dL (1.8-2.4); POTASSIUM 3.9 mmol/L (3.5-5.1); SODIUM SERUM 139 mmol/L (136-145); TOTAL PROTEIN, SERUM 4.9 g/dL (6.4-8.2); UREA NITROGEN, BLOOD 36 mg/dL (7-18)
[2022-08-20] MEDS: ASPIRIN 81 MG TAB.CHEW PO SCH (09:07)
[2022-08-20] MEDS: CARVEDILOL 3.125 MG TABLET PO SCH ×2 (09:07→16:05)
[2022-08-20] MEDS: FLUOXETINE HCL 20 MG CAPSULE PO SCH (09:07)
[2022-08-20] MEDS: LEVOTHYROXINE SODIUM 125 MCG TABLET PO SCH (09:07)
[2022-08-20] MEDS: BUMETANIDE INJ 0.25 MG/ML VIAL IV SCH ×2 (10:36→16:08)
[2022-08-20 12:00] VITALS: BP 105/54
[2022-08-20] MEDS ORDERED: Magnesium 1GM/D5W 100ML PREMIX 100 ML IV SCH (12:00)
[2022-08-20 16:00] VITALS: BP 117/45
[2022-08-20] MEDS: ENOXAPARIN SODIUM 30 MG/0.3 ML DISP.SYRIN SQ SCH (16:11)
[2022-08-20 20:00] VITALS: BP 95/55
[2022-08-20] MEDS: THERAHONEY GEL 1.5 OZ TUBE TP SCH (21:58)
[2022-08-20] MEDS: ATORVASTATIN 40 MG TABLET PO SCH (22:05)
[2022-08-21 01:56] VITALS: BP 120/50
[2022-08-21 04:00] VITALS: BP 147/63
[2022-08-21] MEDS ORDERED: SILVER NITRATE APPLICATOR 1 EA BOX TP PRN (06:00)
[2022-08-21] MEDS ORDERED: LIDOCAINE 1%-EPI 1:100,000 20 ML VIAL TP ONE (06:00)
[2022-08-21 08:00] VITALS: BP 160/73
[2022-08-21] MEDS: CARVEDILOL 3.125 MG TABLET PO SCH ×2 (08:10→16:15)
[2022-08-21] MEDS: BUMETANIDE INJ 0.25 MG/ML VIAL IV SCH ×2 (08:10→16:18)
[2022-08-21] MEDS: LEVOTHYROXINE SODIUM 125 MCG TABLET PO SCH (08:11)
[2022-08-21] MEDS: ASPIRIN 81 MG TAB.CHEW PO SCH (08:11)
[2022-08-21] MEDS: FLUOXETINE HCL 20 MG CAPSULE PO SCH (08:14)
[2022-08-21] MEDS: THERAHONEY GEL 1.5 OZ TUBE TP SCH (08:15)
[2022-08-21] MEDS: FUROSEMIDE 100 MG/10 ML VIAL IV SCH ×3 (09:26→16:18)
[2022-08-21] MEDS: POTASSIUM CHLORIDE 20 MEQ TAB.PRT.SR PO SCH ×3 (09:26→11:43)
[2022-08-21 10:51] LABS: BASOPHILS % (AUTO) 0.5 % (0.0-2.0); EOSINOPHILS % (AUTO) 1.4 % (0.0-6.0); HEMATOCRIT 27 % (33-45); HEMOGLOBIN 8.2 g/dL (11.5-14.8); LYMPHOCYTES # (AUTO) 0.9 K/uL (0.8-4.8); LYMPHOCYTES % (AUTO) 26.4 % (20.0-44.0); MEAN CORPUSCULAR HGB CONC 31 g/dl (31.0-36.0); MEAN CORPUSCULAR VOLUME 85 fL (82-100); MONOCYTES # (AUTO) 0.2 K/uL (0.1-1.30); MONOCYTES % (AUTO) 7.2 % (2.0-12.0); NEUTROPHILS # (AUTO) 2.2 K/uL (1.8-8.9); NEUTROPHILS % (AUTO) 64.5 % (43.0-81.0); PLATELET COUNT (AUTO) 139 K/uL (150-450); RED BLOOD CELL COUNT(AUTO) 3.14 MIL/uL (4.0-5.2); WHITE BLOOD COUNT (AUTO) 3.4 K/uL (4.3-11.0)
[2022-08-21 11:14] LABS: CALCIUM, SERUM 7.5 mg/dL (8.5-10.1); CARBON DIOXIDE 24 mmol/L (21-32); CHLORIDE 108 mmol/L (98-107); CREATININE 1.8 mg/dL (0.6-1.3); GLUCOSE 141 mg/dL (74-106); POTASSIUM 3.2 mmol/L (3.5-5.1); SODIUM SERUM 138 mmol/L (136-145); UREA NITROGEN, BLOOD 34 mg/dL (7-18)
[2022-08-21 11:19] LABS: ALANINE AMINOTRANSFERASE 17 U/L (12-78); ALBUMIN 1.6 g/dL (3.4-5.0); ALKALINE PHOSPHATASE 198 U/L (46-116); ASPARTATE AMINOTRANSFERASE 22 U/L (15-37); BILIRUBIN,TOTAL 0.4 mg/dL (0.2-1.0); TOTAL PROTEIN, SERUM 4.5 g/dL (6.4-8.2)
[2022-08-21 12:00] VITALS: BP 118/48
[2022-08-21] MEDS ORDERED: LIDOCAINE 2%-EPI 1:100,000 30 ML VIAL TP ONE (12:00)
[2022-08-21 12:23] LABS: BAND % (MANUAL) 1 % (0.0-5.0); EOSINOPHILS % (MANUAL) 2 % (0-4); LYMPHOCYTES % (MANUAL) 21 % (16-48); MONOCYTES % (MANUAL) 7 % (0-11.0); NEUTROPHILS % (MANUAL) 69 (42-76)
[2022-08-21 16:00] VITALS: BP 107/49
[2022-08-21] MEDS: ENOXAPARIN SODIUM 30 MG/0.3 ML DISP.SYRIN SQ SCH (16:23)
[2022-08-21 20:00] VITALS: BP 122/55
[2022-08-21] MEDS: CEFTRIAXONE 1 G in IV D5W 50 ML IV SCH (20:31)
[2022-08-21] MEDS: ATORVASTATIN 40 MG TABLET PO SCH (21:06)
[2022-08-22] VITALS: BP 124/61
[2022-08-22 04:00] VITALS: BP 107/58
[2022-08-22 07:07] LABS: BASOPHILS % (AUTO) 0.2 % (0.0-2.0); EOSINOPHILS % (AUTO) 1.5 % (0.0-6.0); HEMATOCRIT 30 % (33-45); HEMOGLOBIN 9.5 g/dL (11.5-14.8); LYMPHOCYTES # (AUTO) 1.6 K/uL (0.8-4.8); LYMPHOCYTES % (AUTO) 26.3 % (20.0-44.0); MEAN CORPUSCULAR HGB CONC 32 g/dl (31.0-36.0); MEAN CORPUSCULAR VOLUME 84 fL (82-100); MONOCYTES # (AUTO) 0.5 K/uL (0.1-1.30); MONOCYTES % (AUTO) 8.8 % (2.0-12.0); NEUTROPHILS % (AUTO) 63.2 % (43.0-81.0); PLATELET COUNT (AUTO) 170 K/uL (150-450); RED BLOOD CELL COUNT(AUTO) 3.56 MIL/uL (4.0-5.2); WHITE BLOOD COUNT (AUTO) 6.3 K/uL (4.3-11.0)
[2022-08-22 07:47] LABS: ALANINE AMINOTRANSFERASE 16 U/L (12-78); ALBUMIN 1.9 g/dL (3.4-5.0); ALKALINE PHOSPHATASE 228 U/L (46-116); ASPARTATE AMINOTRANSFERASE 19 U/L (15-37); BILIRUBIN,TOTAL 0.3 mg/dL (0.2-1.0); CARBON DIOXIDE 29 mmol/L (21-32); CHLORIDE 109 mmol/L (98-107); CREATININE 1.9 mg/dL (0.6-1.3); GLUCOSE 102 mg/dL (74-106); MAGNESIUM 1.8 mg/dL (1.8-2.4); PHOSPHORUS 2.8 mg/dL (2.5-4.9); POTASSIUM 4.1 mmol/L (3.5-5.1); SODIUM SERUM 142 mmol/L (136-145); TOTAL PROTEIN, SERUM 5.1 g/dL (6.4-8.2); UREA NITROGEN, BLOOD 38 mg/dL (7-18)
[2022-08-22 08:00] VITALS: BP 120/72
[2022-08-22] MEDS: THERAHONEY GEL 1.5 OZ TUBE TP SCH (09:00)
[2022-08-22] MEDS: CARVEDILOL 3.125 MG TABLET PO SCH ×2 (09:00→18:30)
[2022-08-22] MEDS: LEVOTHYROXINE SODIUM 125 MCG TABLET PO SCH (10:43)
[2022-08-22] MEDS: FLUOXETINE HCL 20 MG CAPSULE PO SCH (10:44)
[2022-08-22] MEDS: BUMETANIDE INJ 0.25 MG/ML VIAL IV SCH ×3 (10:45→17:08)
[2022-08-22] MEDS: ASPIRIN 81 MG TAB.CHEW PO SCH (10:45)
[2022-08-22 12:00] VITALS: BP 137/69
[2022-08-22 16:00] VITALS: BP 131/85
[2022-08-22] MEDS: CEFTRIAXONE 1 G in IV D5W 50 ML IV SCH (18:31)
[2022-08-22] MEDS: ENOXAPARIN SODIUM 30 MG/0.3 ML DISP.SYRIN SQ SCH (18:34)
[2022-08-22] MEDS: PROSOURCE / PROSTAT (PYXIS) 30 ML UDC PO SCH (18:36)
[2022-08-22 20:00] VITALS: BP 117/50
[2022-08-23 04:00] VITALS: BP 116/52
[2022-08-23 08:00] VITALS: BP 111/63
[2022-08-23] MEDS: THERAHONEY GEL 1.5 OZ TUBE TP SCH (09:05)
[2022-08-23] MEDS: LEVOTHYROXINE SODIUM 125 MCG TABLET PO SCH (09:09)
[2022-08-23] MEDS: ASPIRIN 81 MG TAB.CHEW PO SCH (09:09)
[2022-08-23] MEDS: FLUOXETINE HCL 20 MG CAPSULE PO SCH (09:10)
[2022-08-23] MEDS: CARVEDILOL 3.125 MG TABLET PO SCH (09:10)
[2022-08-23] MEDS: PROSOURCE / PROSTAT (PYXIS) 30 ML UDC PO SCH (09:16)
[2022-08-23 12:00] VITALS: BP 108/61
== END 2022-08-23 15:00 | DRG 264 ==
LOC: ER 14:33 → TELE1 17:01 → MEDSG1 08-22 10:05
PROVIDERS: ADMIT Internal Medicine; ATTEND Internal Medicine
PROC: 05HB33Z Insertion of Infusion Device into Right Basilic Vein, Percutaneous Approach (ICD-10-PCS; principal; 2022-08-19)
PROC: 0JB70ZZ Excision of Back Subcutaneous Tissue and Fascia, Open Approach (ICD-10-PCS; 2022-08-21)
DX: I13.0 Hypertensive heart and chronic kidney disease with heart failure and stage 1 through stage 4 chronic kidney disease, or unspecified chronic kidney disease (principal); L89.153 Pressure ulcer of sacral region, stage 3; I50.33 Acute on chronic diastolic (congestive) heart failure; I21.A1 Myocardial infarction type 2; N17.0 Acute kidney failure with tubular necrosis; E43 Unspecified severe protein-calorie malnutrition; E87.1 Hypo-osmolality and hyponatremia; J98.11 Atelectasis; N39.0 Urinary tract infection, site not specified; N18.9 Chronic kidney disease, unspecified; Z20.822 Contact with and (suspected) exposure to COVID-19; E78.5 Hyperlipidemia, unspecified; F32.A Depression, unspecified; Z79.51 Long term (current) use of inhaled steroids; Z79.899 Other long term (current) drug therapy; E88.09 Other disorders of plasma-protein metabolism, not elsewhere classified; D63.8 Anemia in other chronic diseases classified elsewhere; D69.6 Thrombocytopenia, unspecified; R60.9 Edema, unspecified; E87.6 Hypokalemia; N28.1 Cyst of kidney, acquired; R53.1 Weakness
CPT/HCPCS: 36415; 71045-TC; 76770-TC; 80048-TC; 80053-TC; 80076-TC; 81001; 82570-TC; 83735-TC; 83880; 84100-TC; 84300-TC; 84443-TC; 84484-TC; 85025-TC; 87081-TC; 87086-TC; 93307-TC; A4216; A4223; C9803; G0378; J0696; J1650; J1940; J3475; J3490; J7030; J7050; J7060; P9047